=== PATIENT | male | born 1945 | race Caucasian/White ===

== ENCOUNTER 2016-06-19 15:54 | Emergency (ER) | payer MEDICARE, OTHER ==
[~2016-06-19] VITALS: Ht 167.6 cm; Wt 78.0 kg
--- NOTE | 2016-06-19 16:38 | PHYS DOC ---
Adult General Chief Complaint Chief Complaint: LOWER BACK PAIN OR INJURY HPI HPI Patient is a 71 year old male with history of remote sciatica who presents today with right flank and low back pain moderate in nature that began a week ago and has been going on intermittently since then. Patient states he has some numbness on the right heel. Patient denies any known injury. Denies any loss of bowel bladder function. Patient states he has tried taking ibuprofen and naproxen with no relief. He states today he was supposed to go to see the PCP and was not able to ambulate from the car into the doctor's office hence came to the ED. He states he saw a chiropractor today who felt he should be checked out for kidney infection as well as the pain. Review of Systems Review of Systems Constitutional: Denies fever or chills [] Eyes: Denies change in visual acuity, redness, or eye pain [] HENT: Denies nasal congestion or sore throat [] Respiratory: Denies cough or shortness of breath [] Cardiovascular: No additional information not addressed in HPI [] GI: Denies abdominal pain, nausea, vomiting, bloody stools or diarrhea [] : Denies dysuria or hematuria [] Musculoskeletal: Right mid and low back pain Integument: Denies rash or skin lesions [] Neurologic: Denies headache, focal weakness or sensory changes [] Endocrine: Denies polyuria or polydipsia [] Current Medications Current Medications Current Medications Medications (Trade) Dose Ordered Sig/Gill Start Time Stop Time Status Last Admin Dose Admin Acetaminophen/ Hydrocodone Bitart (Lortab 7.5/325) 2 tab 1X ONCE 06/19/16 17:30 06/19/16 17:31 Cancel Diazepam (Valium) 5 mg 1X ONCE 06/19/16 17:30 06/19/16 17:31 Cancel Morphine Sulfate 5 mg 1X ONCE 06/19/16 17:15 06/19/16 17:16 DC 06/19/16 17:13 5 MG Naproxen (Naprosyn) 500 mg 1X STAT 06/19/16 17:25 06/19/16 17:26 Cancel Allergies Allergies Allergies Coded Allergies Type Severity Reaction Last Updated Verified No Known Drug Allergies 06/19/16 No Physical Exam Physical Exam Constitutional: Well developed, well nourished, no acute distress, non-toxic appearance. [] HENT: Normocephalic, atraumatic, bilateral external ears normal, oropharynx moist, no oral exudates, nose normal. [] Eyes: PERRLA, EOMI, conjunctiva normal, no discharge. [] Neck: Normal range of motion, no tenderness, supple, no stridor. [] Cardiovascular:Heart rate regular rhythm, no murmur [] Lungs & Thorax: Bilateral breath sounds clear to auscultation [] Abdomen: Bowel sounds normal, soft, no tenderness, no masses, no pulsatile masses. [] Skin: Warm, dry, no erythema, no rash. [] Back: Diffuse tenderness paraspinal muscles of the right thoracic and lumbar region, no midline tenderness, straight leg raises not attempted because patient was uncomfortable to transfer from wheelchair to bed Extremities: No tenderness, no cyanosis, no clubbing, ROM intact, no edema. [] Neurologic: Alert and oriented X 3, normal motor function, normal sensory function, no focal deficits noted. [] Psychologic: Affect normal, judgement normal, mood normal. [] Current Patient Data Vital Signs Vital Signs Date Time Temp Pulse Resp B/P Pulse Ox O2 Delivery O2 Flow Rate FiO2 06/19/16 17:13 14 97 Room Air 06/19/16 16:50 98.0 70 98.0 Lab Values Laboratory Tests Test 06/19/16 16:41 Urine Collection Type Unknown Urine Color Yellow Urine Clarity Clear Urine pH 6.0 Urine Specific [place] <=1.005 Urine Protein Negativemg/dL (NEG-TRACE) Urine Glucose (UA) Negativemg/dL (NEG) Urine Ketones (Stick) Negativemg/dL (NEG) Urine Blood Negative (NEG) Urine Nitrite Negative (NEG) Urine Bilirubin Negative (NEG) Urine Urobilinogen Dipstick 0.2mg/dL (0.2 mg/dL) Urine Leukocyte Esterase Negative (NEG) Urine RBC Rare/HPF (0-2) Urine WBC 1-4/HPF (0-4) Urine Squamous Epithelial Cells Occ/LPF Urine Bacteria 0/HPF (0-FEW) Urine Mucus Slight/LPF EKG EKG [] Radiology/Procedures Radiology/Procedures []PROCEDURE: LUMBAR SPINE WO CONTRAST EXAM: CT lumbar spine without contrast. HISTORY: Low back pain. TECHNIQUE: CT of the lumbar spine was performed without intravenous contrast. COMPARISON: None. FINDINGS: A cyst in the left kidney is partially visualized and measures 1.6 cm. There is a smaller cyst on the right. Atherosclerotic calcifications are noted. There is a retroaortic left renal vein. There is a mild lumbar levocurvature. There is mild superior endplate wedging at T12 which may be chronic or developmental. There is slight retrolisthesis at L4-5. Degenerative disc disease is mild at L1-2. There is mild endplate remodeling at other levels. At L1-2, there is a small posterior disc bulge. There is no stenosis. At L2-3, there is a moderate posterior disc-osteophyte complex. Facet and ligamentum flavum hypertrophy is moderate. Central canal stenosis is moderate. Foraminal stenosis is mild to moderate on the right and mild on the left. At L3-4, there is a moderate posterior disc bulge. Facet and ligamentum flavum hypertrophy is moderate. Central canal stenosis appears moderate to severe. There is only mild impingement on the neural foramina. At L4-5, there is a moderate. B. Facet and ligamentum flavum hypertrophy is moderate. Central canal stenosis is moderate to severe. Foraminal stenosis is mild bilaterally. At L5-S1, there is a moderate posterior disc bulge. Facet and ligamentum flavum hypertrophy is moderate. Central canal stenosis appears mild. Foraminal stenosis is mild bilaterally. IMPRESSION: 1. No fracture or acute malalignment. 2. Central canal stenosis is moderate to severe from L2 through L5 and mild at L5-S1. MRI could further assess stenosis if there is persistent concern. 3. Igaw-um-zbcvbpke foraminal stenosis as above. PROCEDURE: THORACIC SPINE WO CONTRAST EXAM: CT thoracic spine without contrast. HISTORY: Thoracic back pain. TECHNIQUE: CT of the thoracic spine was performed without intravenous contrast. COMPARISON: None. FINDINGS: There are calcified and uncalcified pleural plaques bilaterally. There is mild overlying atelectasis or parenchymal scarring. Mild atherosclerotic calcifications are noted. There is a minimal thoracic dextrocurvature. There is mild superior plate depression at T3 and T4. This does not appear acute. There is a small superior endplate Schmorl's node at T11. Minimal wedging of the superior endplate of T11 and T12 may be developmental or chronic. There is ossification of the anterior longitudinal ligament with syndesmosis from T5 through T11. There is also some ossification of the interspinous ligaments at these levels. Disc heights are maintained. There is no clear central canal stenosis or foraminal stenosis. IMPRESSION: 1. Mild superior endplate depression at T3, T4, T11 and T12 is evident developmental or chronic. No acute fractures are seen. Correlate for focal tenderness. 2. Ankylosis from T5 through T11 in a pattern suggesting diffuse hepatic skeletal hyperostosis. 3. Calcified and noncalcified pleural plaquing. Correlate for asbestos exposure. Course & Med Decision Making Course & Med Decision Making Pertinent Labs and Imaging studies reviewed. (See chart for details) Patient is in the ED with thoracic and lumbar spine pain that has been going on intermittently for one week. He has history of very remote sciatica. He has tried naproxen and ibuprofen with no relief. He saw the chiropractor today with no relief. He is also concerned he could have a kidney infection. Urine analysis is negative for any acute findings. CT of the thoracic spine has no acute finding, these are noted for depression on T3 and T4 which appears to be acute. CT of the lumbar spine was also noted for asbestosis exposure. 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 He has no symptoms related to it right now. Lumbar spine CT is also negative for any acute findings but noted for stenosis on L2-L5 and L5-S1. Patient was discharged with pain medicines and instructed to follow-up with his own PCP as soon as possible. He was provided return precautions and discharged in stable condition. Dragon Disclaimer Dragon Disclaimer This electronic medical record was generated, in whole or in part, using a voice recognition dictation system. Departure Departure Impression: Primary Impression: Lumbar spinal stenosis Additional Impressions: Back pain Right sciatic nerve pain Disposition: HOME, SELF-CARE Condition: STABLE Referrals: TL GILES MD (PCP) Follow-up with your doctor in the next 1 week. Patient Instructions: Back Pain, Adult Additional Instructions: You were seen for back pain with sciatica. Follow-up with your own doctor as soon as possible. Come back to the ED if pain worsens or you have any loss of bowel bladder function. Scripts Cyclobenzaprine Hcl 10 Mg Tablet1 Tab PO TID #30 TAB Prov:JOEY PFEIFFER JUAN CARLOS 06/19/16 Hydrocodone/Apap 5-325 ([place] 5-325 Tablet)1 Each Tablet1-2 Tab PO Q4-6HRS #20 TAB Prov:JOEY PFEIFFER APRN 06/19/16 Problem Qualifiers Additional Impressions: Back pain Back pain location: low back pain Chronicity: chronic Back pain laterality : right Sciatica presence: with sciatica Sciatica laterality: sciatica of right side Qualified Code: M54.41 - Lumbago with sciatica, right side JOEY PFEIFFER APRN Jun 19, 2016 16:38
[2016-06-19 16:50] VITALS: BP 156/80
[2016-06-19 16:56] LABS: BILIRUBIN,URINE NEGATIVE (NEG); GLUCOSE,URINE NEGATIVE (NEG); NITRITE,URINE NEGATIVE (NEG); PROTEIN,URINE NEGATIVE (NEG-TRACE); UROBILINOGEN,URINE 0.2 mg/dL (0.2 mg/dL)
[2016-06-19] MEDS ORDERED: MORPHINE SULFATE 10 MG/ML VIAL. IM ONE (17:15)
[2016-06-19] MEDS ORDERED: DIAZEPAM 5 MG TABLET PO ONE ×2 (17:15→17:30)
--- NOTE | 2016-06-19 17:19 | RAD ---
EXAM: CT lumbar spine without contrast. HISTORY: Low back pain. TECHNIQUE: CT of the lumbar spine was performed without intravenous contrast. COMPARISON: None. FINDINGS: A cyst in the left kidney is partially visualized and measures 1.6 cm. There is a smaller cyst on the right. Atherosclerotic calcifications are noted. There is a retroaortic left renal vein. There is a mild lumbar levocurvature. There is mild superior endplate wedging at T12 which may be chronic or developmental. There is slight retrolisthesis at L4-5. Degenerative disc disease is mild at L1-2. There is mild endplate remodeling at other levels. At L1-2, there is a small posterior disc bulge. There is no stenosis. At L2-3, there is a moderate posterior disc-osteophyte complex. Facet and ligamentum flavum hypertrophy is moderate. Central canal stenosis is moderate. Foraminal stenosis is mild to moderate on the right and mild on the left. At L3-4, there is a moderate posterior disc bulge. Facet and ligamentum flavum hypertrophy is moderate. Central canal stenosis appears moderate to severe. There is only mild impingement on the neural foramina. At L4-5, there is a moderate. B. Facet and ligamentum flavum hypertrophy is moderate. Central canal stenosis is moderate to severe. Foraminal stenosis is mild bilaterally. At L5-S1, there is a moderate posterior disc bulge. Facet and ligamentum flavum hypertrophy is moderate. Central canal stenosis appears mild. Foraminal stenosis is mild bilaterally. IMPRESSION: 1. No fracture or acute malalignment. 2. Central canal stenosis is moderate to severe from L2 through L5 and mild at L5-S1. MRI could further assess stenosis if there is persistent concern. 3. Shyw-tm-lekudkkv foraminal stenosis as above. One or more of the following individualized dose reduction techniques were utilized for this examination: 1. Automated exposure control. 2. Adjustment of the mA and/or kV according to patient size. 3. Use of iterative reconstruction technique.
[2016-06-19 17:21] LABS: BACTERIA,URINE 0 /HPF (0-FEW); RBC,URINE RARE /HPF (0-2); SQUAMOUS EPITHELIAL CELL,UR OCC /LPF
--- NOTE | 2016-06-19 17:24 | RAD ---
EXAM: CT thoracic spine without contrast. HISTORY: Thoracic back pain. TECHNIQUE: CT of the thoracic spine was performed without intravenous contrast. COMPARISON: None. FINDINGS: There are calcified and uncalcified pleural plaques bilaterally. There is mild overlying atelectasis or parenchymal scarring. Mild atherosclerotic calcifications are noted. There is a minimal thoracic dextrocurvature. There is mild superior plate depression at T3 and T4. This does not appear acute. There is a small superior endplate Schmorl's node at T11. Minimal wedging of the superior endplate of T11 and T12 may be developmental or chronic. There is ossification of the anterior longitudinal ligament with syndesmosis from T5 through T11. There is also some ossification of the interspinous ligaments at these levels. Disc heights are maintained. There is no clear central canal stenosis or foraminal stenosis. IMPRESSION: 1. Mild superior endplate depression at T3, T4, T11 and T12 is evident developmental or chronic. No acute fractures are seen. Correlate for focal tenderness. 2. Ankylosis from T5 through T11 in a pattern suggesting diffuse hepatic skeletal hyperostosis. 3. Calcified and noncalcified pleural plaquing. Correlate for asbestos exposure. One or more of the following individualized dose reduction techniques were utilized for this examination: 1. Automated exposure control. 2. Adjustment of the mA and/or kV according to patient size. 3. Use of iterative reconstruction technique.
[2016-06-19] MEDS ORDERED: NAPROXEN 500 MG TABLET PO STA (17:25)
[2016-06-19] MEDS ORDERED: HYDROCODONE/APAP 7.5/325MG TABLET. PO ONE (17:30)
[2016-06-19] MEDS ORDERED: CYCL10TA2 PO (18:05)
[2016-06-19] MEDS ORDERED: HYDR-971 PO (18:05)
== END 2016-06-19 18:09 | disposition home or self-care (01) ==
LOC: ER 15:54
DX: M48.06 Spinal stenosis, lumbar region (principal); M54.41 Lumbago with sciatica, right side; M54.6 Pain in thoracic spine
CPT/HCPCS: 72128; 72131; 81001; 96372; 99285; J2270

== ENCOUNTER → 2016-07-14 | Outpatient (CLI) | payer OTHER ==
[2016-06-19 16:50] VITALS: BP 156/80
[~2016-07-14] MED LIST: CYCL10TA2 PO; HYDR-971 PO
--- NOTE | 2016-07-14 12:15 | KCIC ---
PROCEDURE Renal ultrasound. HISTORY Renal cyst COMPARISON There is no previous similar exam available FINDINGS Multiple sonographic images of the kidneys and urinary bladder are submitted. Right kidney measured 11.3 x 5.8 x 4.6 centimeters. Left kidney measured 11.3 x 5.9 x 5.9 centimeters. There is exophytic focus of hypoechogenicity of the medial aspect of the superior left kidney on the order of 1.9 x 2.2 x 2.2 centimeters in size with increased through transmission. There is no hydronephrosis of either kidney. Renal cortical echogenicity is considered within normal limits. Urinary bladder morphology is within normal limits. There is mild prostatomegaly estimated at 5.4 x 4.3 x 4.2 centimeters, some internal calcifications present. IMPRESSION 1. There is superior left renal cyst. 2. There is mild prostatomegaly. Electronically signed by: Jus Sheridan MD (Jul 14, 2016 12:13:20)
== END | disposition home or self-care (01) ==
LOC: KCIC US 11:02
PROVIDERS: ATTEND Family Medicine
DX: N28.1 Cyst of kidney, acquired (principal); N40.1 Benign prostatic hyperplasia with lower urinary tract symptoms
CPT/HCPCS: 76770

== ENCOUNTER → 2016-08-07 | Outpatient (CLI) | payer OTHER ==
--- NOTE | 2016-08-07 10:59 | RAD ---
CT chest without IV contrast History: Pleural plaquing. Comparison: CT thoracic spine 06/19/2016. Technique: Helical CT of the chest was performed without intravenous contrast. Axial, sagittal, and coronal reconstructions were obtained. One or more of the following individualized dose reduction techniques were utilized for the study: Automated exposure control Adjustment of mA and/or kV according to patient's size Use of iterative reconstruction technique. Findings: Visualized thyroid appears enlarged and heterogeneous. Trachea and mainstem bronchi appear patent. No mediastinal lymphadenopathy is seen. Aortic valve appears heavily calcified. Coronary artery calcifications are present. Heart and pericardium are unremarkable. The mid ascending thoracic aorta appears ectatic measuring 4.0 cm diameter. Descending thoracic aorta has diameter of 2.5 cm. No pneumothorax or pleural effusion is seen. No acute airspace disease are identified. No pulmonary parenchymal masses are appreciated. There are bilateral calcified and noncalcified pleural plaques involving the parietal pleura. There is also evidence several small noncalcified plaques involving the diaphragmatic pleura, more evident involving the right diaphragmatic pleura. 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 Appearance of the spine is unchanged with multiple bridging disc osteophytes suggesting DISH. Impression: 1. Bilateral calcified and noncalcified pleural plaques are seen including noncalcified pleural plaques thought to involve the right diaphragmatic pleura. 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 2. Aortic valve appears heavily calcified. Correlate with any history of aortic stenosis.
== END | disposition home or self-care (01) ==
LOC: CT 09:17
PROVIDERS: ATTEND Internal Medicine Pulmonary Disease
DX: J92.9 Pleural plaque without asbestos (principal)
CPT/HCPCS: 71250

== ENCOUNTER → 2016-08-19 | Outpatient (CLI) | payer OTHER ==
--- NOTE | 2016-08-19 17:26 | RESP ---
DATE OF SERVICE: 08/19/2016 ATTENDING PHYSICIAN: Dr. Clair Cerda. The patient's FVC was 2.43, which is 65% predicted. FEV1 1.81, which is 67% predicted. The FEV1/FVC ratio was normal. FEF 25-75 was 68% predicted. There was no response to bronchodilators. Lung volumes could not be performed. Diffusion capacity was 120% predicted. IMPRESSION: 1. Spirometry findings are suggestive of small airway dysfunction. 2. Lung volumes were not performed and cannot exclude restrictive lung disease. 3. No response to bronchodilators. 4. Increased diffusion capacity. RICHMOND BORREGO MD DR: ADALBERTO/tiana JOB#: [id number] / [id number] CLAIR Carey MD MTDD
== END | disposition home or self-care (01) ==
LOC: PF 09:27
PROVIDERS: ATTEND Internal Medicine Pulmonary Disease
DX: R06.02 Shortness of breath (principal)
CPT/HCPCS: 94060; 94729

== ENCOUNTER → 2018-05-20 | Outpatient (CLI) | payer OTHER ==
[~2018-05-20] MED LIST changes: +HYDR-3164 PO; -HYDR-971 PO
--- NOTE | 2018-05-20 12:17 | CARD ---
MR#: [id number] Date of Study: 05/20/2018 Ordering Physician: TL GILES, Referring Physician: TL GILES, Tech: Rachele Fletcher APPROVED REPORT EXAM: Two-dimensional and M-mode echocardiogram with Doppler and color Doppler. Other Information Quality : FairHR: 74bpm INDICATION Murmur RISK FACTORS Hypertension Diabetes Previous Smoker 2D DIMENSIONS Left Atrium(2D)3.3 (1.6-4.0cm)IVSd1.8 (0.7-1.1cm) Aortic Root(2D)3.2 (2.0-3.7cm)LVDd6.0 (3.9-5.9cm) LVOT Diameter2.2 (1.8-2.4cm)PWd1.4 (0.7-1.1cm) LVDs2.9 (2.5-4.0cm)FS (%) 52.4 % SV149.3 mlLVEF(%)82.8 (>50%) Aortic Valve AoV Peak Ari.361.5cm/sAoV VTI79.7cm AO Peak GR.52.3mmHgLVOT Peak Ari.70.7cm/s LVOT VTI 22.96cmAO Mean GR.28mmHg HAWK (VMAX)0.87zi2BCY (VTI)1.07cm2 AI P 1/2 Yzgz994bf Mitral Valve MV E Hblvekxj37.5cm/sMV DECEL MGZW251uo MV A Mmuxlkje513.2cm/sMV LOE67at E/A Ratio0.9MVA (PHT)3.23cm2 TDI E/Lateral E'18.5E/Medial E'17.2 Pulmonary Valve PV Peak Secskiky410.5cm/sPV Peak Grad.5mmHg Tricuspid Valve TR P. Mscakobp991pp/sRAP DYHBKSDH5vwAc TR Peak Gr.50soJpQAXX34fcTx Pulmonary Vein S1 Jplhcami59.0cm/sD2 Jikyipdy14.0cm/s PVa zynrascw734hbrn LEFT VENTRICLE The left ventricle is normal size. There is moderate concentric left ventricular hypertrophy. The lef t ventricular systolic function is normal. The Ejection Fraction is 55-60%. There is normal LV segmen aura wall motion. Transmitral Doppler flow pattern is Grade II-pseudonormal filling dynamics. RIGHT VENTRICLE The right ventricle is normal size. There is normal right ventricular wall thickness. The right ventr icular systolic function is normal. ATRIA The left atrium size is normal. The right atrium size is normal. The interatrial septum is intact wit h no evidence for an atrial septal defect or patent foramen ovale as noted on 2-D or Doppler imaging. AORTIC VALVE The aortic valve is moderately to severely thickened. Doppler and Color Flow revealed mild aortic reg urgitation. There is moderate valvular aortic stenosis with mean pressure gradient of 28 mmHg. MITRAL VALVE The mitral valve is normal in structure and function. There is no evidence of mitral valve prolapse. There is no mitral valve stenosis. Doppler and Color-flow revealed trace to mild mitral regurgitation . TRICUSPID VALVE The tricuspid valve is normal in structure and function. Doppler and Color Flow revealed trace tricus pid regurgitation. There is no tricuspid valve stenosis. PULMONIC VALVE The pulmonic valve is not well visualized. Doppler and Color Flow revealed no pulmonic valvular regur gitation. GREAT VESSELS The aortic root is normal in size. The IVC is normal in size and collapses >50% with inspiration. PERICARDIAL EFFUSION There is no evidence of significant pericardial effusion. Critical Notification Critical Value: No <Conclusion> The left ventricular systolic function is normal. The Ejection Fraction is 55-60%. There is normal LV segmental wall motion. Moderate valvular aortic stenosis with mean pressure gradient of 28 mmHg. Mild aortic regurgitation. Trace to mild mitral regurgitation. Trace tricuspid regurgitation. There is no evidence of significant pericardial effusion. Signed by : Saeed Smiley, Electronically Approved : 05/20/2018 12:14:38
== END | disposition home or self-care (01) ==
LOC: ECHO 09:02
PROVIDERS: ATTEND Family Medicine
DX: I35.1 Nonrheumatic aortic (valve) insufficiency (principal); I51.7 Cardiomegaly
CPT/HCPCS: 93306

== ENCOUNTER 2018-09-26 10:47 | Emergency (ER) | payer OTHER ==
[~2018-09-26] VITALS: Ht 167.6 cm; Wt 77.1 kg
[2018-09-26 11:24] VITALS: BP 139/70
[2018-09-26] MEDS ORDERED: HYDR-3164 PO (11:56)
[2018-09-26] MEDS ORDERED: METH4TAB2 PO (11:56)
--- NOTE | 2018-09-26 11:57 | PHYS DOC ---
Past Medical History Past Medical History: Hypertension Additional Past Medical Histor: BPH Past Surgical History: No Surgical History Additional Past Surgical Histo: skin graft Alcohol Use: Occasionally Drug Use: None Adult General Chief Complaint Chief Complaint: LOWER BACK PAIN OR INJURY HPI HPI 73-year-old male presents to ER for complaints of left lower back pain which is been radiating down his left lower extremity intermittently for the past few weeks. Pt reports he has been doing yard work using a weedeater and riding mower. Patient reports he took 800 mg ibuprofen a few hours ago with improved symptoms. Review of Systems Review of Systems Constitutional: Denies fever or chills [] Eyes: Denies change in visual acuity, redness, or eye pain [] HENT: Denies nasal congestion or sore throat [] Respiratory: Denies cough or shortness of breath [] Cardiovascular: No additional information not addressed in HPI [] GI: Denies abdominal pain, nausea, vomiting, bloody stools or diarrhea [] : Denies dysuria or hematuria [] Musculoskeletal: Denies back pain or joint pain [] Integument: Denies rash or skin lesions [] Neurologic: Denies headache, focal weakness or sensory changes [] Endocrine: Denies polyuria or polydipsia [] All other systems were reviewed and found to be within normal limits, except as documented in this note. Current Medications Current Medications Current Medications Medications (Trade) Dose Ordered Sig/Gill Start Time Stop Time Status Last Admin Dose Admin Prednisone (Prednisone) 40 mg 1X ONCE 09/26/18 12:00 09/26/18 12:01 DC 09/26/18 11:54 40 MG Allergies Allergies Allergies Coded Allergies Type Severity Reaction Last Updated Verified No Known Drug Allergies 06/19/16 No Physical Exam Physical Exam Constitutional: Well developed, well nourished, no acute distress, non-toxic appearance. [] HENT: Normocephalic, atraumatic, bilateral external ears normal, oropharynx moist, no oral exudates, nose normal. [] Eyes: PERRLA, EOMI, conjunctiva normal, no discharge. [] Neck: Normal range of motion, no tenderness, supple, no stridor. [] Cardiovascular:Heart rate regular rhythm, no murmur [] Lungs & Thorax: Bilateral breath sounds clear to auscultation [] Abdomen: Bowel sounds normal, soft, no tenderness, no masses, no pulsatile masses. [] Skin: Warm, dry, no erythema, no rash. [] Back: No tenderness, no CVA tenderness. [] Extremities: No tenderness, no cyanosis, no clubbing, ROM intact, no edema. [] Neurologic: Alert and oriented X 3, normal motor function, normal sensory function, no focal deficits noted. [] Psychologic: Affect normal, judgement normal, mood normal. [] Current Patient Data Vital Signs Vital Signs Date Time Temp Pulse Resp B/P (MAP) Pulse Ox O2 Delivery O2 Flow Rate FiO2 09/26/18 11:24 98.7 85 18 139/70 (93) 97 Room Air 98.7 EKG EKG [] Radiology/Procedures Radiology/Procedures [] Course & Med Decision Making Course & Med Decision Making Pertinent Labs and Imaging studies reviewed. (See chart for details) [] Dragon Disclaimer Dragon Disclaimer This electronic medical record was generated, in whole or in part, using a voice recognition dictation system. Departure Departure Impression: Primary Impression: Back pain Additional Impression: Sciatica, left side Disposition: 01 HOME, SELF-CARE Condition: STABLE Referrals: TL GILES MD (PCP) Patient Instructions: Back Pain, Adult, Sciatica Additional Instructions: As discussed follow-up with your primary care physician for reevaluation and further care if symptoms persist. Epsom salt soaks as directed on container. Tylenol and/or ibuprofen as needed for pain as directed on container- avoid Tylenol if taking the prescribed [place]. No driving or drinking alcohol while taking the [place]. Scripts Hydrocodone/Apap 5-325 ([place] 5-325 TABLET) 1 Each Tablet 1 TAB PO PRN Q6HRS PRN for PAIN, #8 TAB 0 Refills No driving or drinking alcohol while taking this medication Prov: TERRI SMITH APRN 09/26/18 Methylprednisolone (MEDROL) 4 Mg Tab.ds.pk 1 PKG PO UD, #1 PKG 0 Refills Start 09/27/18 Prov: TERRI SMITH APRN 09/26/18 Problem Qualifiers TERRI SMITH APRN Sep 26, 2018 11:57
[2018-09-26] MEDS ORDERED: predniSONE 20 MG TABLET PO ONE (12:00)
== END 2018-09-26 12:45 | disposition home or self-care (01) ==
LOC: ER 10:47
DX: M54.42 Lumbago with sciatica, left side (principal); I10 Essential (primary) hypertension
CPT/HCPCS: 99283; J7512

== ENCOUNTER → 2018-10-05 | Outpatient (CLI) | payer OTHER ==
[2018-09-26 11:24] VITALS: BP 139/70
[~2018-10-05] MED LIST changes: +METH4TAB2 PO
--- NOTE | 2018-10-05 17:50 | KCIC ---
5 view lumbar spine radiographs 10/05/2018 CLINICAL HISTORY: Low back pain which radiates down the left leg. AP, 2 lateral and bilateral oblique digital radiographs of the lumbar spine were obtained. FINDINGS: Comparison is made to a CT scan of the lumbar spine dated 06/16/2016. There is diffuse osteopenia of the visualized bony structures. Minimal S-shaped curvature of the thoracolumbar spine is seen. Degenerative changes are seen throughout the lumbar disc spaces consisting of vertebral endplate sclerosis and minimal to mild anterior and posterior vertebral body osteophyte formation. Degenerative changes are seen involving the facet joints throughout the mid and lower lumbar disc spaces. No fracture or subluxation is seen. Atherosclerotic calcification of the abdominal aorta is noted. IMPRESSION: Degenerative changes are seen involving the lumbar spine as discussed above. No acute osseous abnormality is seen. Electronically signed by: Jovan Braden MD (10/05/2018 5:47 PM) [id number]
== END | disposition home or self-care (01) ==
LOC: KCIC 15:35
PROVIDERS: ATTEND Family Medicine
DX: M47.816 Spondylosis without myelopathy or radiculopathy, lumbar region (principal); M85.88 Other specified disorders of bone density and structure, other site; M25.78 Osteophyte, vertebrae; I70.0 Atherosclerosis of aorta
CPT/HCPCS: 72110

== ENCOUNTER → 2018-10-31 | Outpatient (CLI) | payer OTHER ==
--- NOTE | 2018-10-31 11:15 | KCIC ---
Clinical indications: Screening for metal within the orbits prior to an MRI study. A single Conde view of the orbits was performed. Findings: No metallic foreign body is seen within either orbit. The maxillary and ethmoid and frontal sinuses are clear. The orbital floors appear symmetric and are intact. Impression: No metallic foreign body is identified within either orbit. Electronically signed by: Baldev Alexandre MD (10/31/2018 11:12 AM) [id number]
--- NOTE | 2018-10-31 14:45 | KCIC ---
LUMBAR SPINE WO CONTRAST Date: 10/31/2018 11:00 AM Indication: Low back pain with left lower extremity radiculopathy Comparison: Lumbar spine radiographs 10/05/2018. CT lumbar spine 06/19/2016. Technique: Multi-planar multi-weighted magnetic resonance imaging of the lumbar spine was performed without intravenous contrast using the standard lumbar spine protocol. FINDINGS: The lumbar spine is normally aligned. No acute fracture. Mild multilevel degenerative disc desiccation and disc height loss. No marrow replacing process to suggest malignancy. The conus terminates at a normal level. No abnormal signal is seen within the visualized distal spinal cord. No clumping of intrathecal nerve roots. No soft tissue abnormality in the visualized abdomen or pelvis. T12-L1: No disc bulge. No facet arthropathy. No significant spinal stenosis or neural foraminal narrowing. L1-L2: No disc bulge. No facet arthropathy. No significant spinal stenosis or neural foraminal narrowing. L2-L3: Disc bulge with annular tear. Mild to moderate facet arthropathy. Mild spinal stenosis. Moderate bilateral neural foraminal narrowing. L3-L4: Disc bulge. Moderate facet arthropathy. Mild to moderate spinal stenosis and lateral recess. Mild to moderate bilateral neural foraminal narrowing. L4-L5: Disc bulge. Moderate facet arthropathy. Ligamentum flavum thickening. Mild to moderate spinal stenosis. Mild to moderate bilateral neural foraminal narrowing. Moderate lateral recess narrowing. L5-S1: Disc bulge. Mild facet arthropathy. No significant spinal stenosis. Mild neural foraminal narrowing. IMPRESSION: Lumbar spondylosis, detailed level by level above. No high-grade spinal canal narrowing. Electronically signed by: Gianfranco Samayoa MD (10/31/2018 2:42 PM) [id number]
== END | disposition home or self-care (01) ==
LOC: KCIC MRI 10:44
PROVIDERS: ATTEND Family Medicine
DX: Z13.5 Encounter for screening for eye and ear disorders (principal); M47.26 Other spondylosis with radiculopathy, lumbar region; M12.88 Other specific arthropathies, not elsewhere classified, other specified site; M48.061 Spinal stenosis, lumbar region without neurogenic claudication
CPT/HCPCS: 70030; 72148

== ENCOUNTER → 2018-12-09 | Outpatient (CLI) | payer OTHER ==
[~2018-12-09] MED LIST changes: +AMLO5TAB10 PO; +DICL75TA PO; +GABA600T7 PO; +LISI-130 PO; +PRED20TA PO; +TAMS0.4C97 PO
--- NOTE | 2018-12-10 00:45 | PAIN ---
DATE OF SERVICE: 12/09/2018 INITIAL CONSULTATION FOR PAIN CLINIC CHIEF COMPLAINT: Neck and bilateral upper extremity pain, right greater than left. HISTORY OF PRESENT ILLNESS: This is a 73-year-old male who presents with history of pain in the base of the neck and shoulders, right upper extremity radiating to the right bicep into the hand with numbness and tingling in the fingers since about 09/26/2018. The patient reports there is not any specific injury or action he is aware of, but getting worse over time with radiating pain in the base of neck and shoulders, again somewhat in the left bicep mostly on the right side. The patient reports it is constant, sharp, throbbing, tingling with numbness, radiating pain in the right arm, changes during the day with activity, worse with reaching over his head, rubbing items of shells, repetitive motions with the right arm with weightbearing or lifting items. The patient reports no loss of motor function, but significant fatigability with the right arm compared to the left. The patient reports it awakens him from sleep at night, but not every night, does not affect his bowel or bladder control, but sometimes does affect his ability to walk and he feels off balance. He is holding things with his right arm such as a rail on a stair. He feels unsteady with his right hand. The patient reports he has tried exercise. He has had some physical therapy in the past without significant improvement. He is doing inversion table at home as well, which seems to help to some extent. The patient is taking prednisone, gabapentin, diclofenac. Prednisone helped significantly, almost 100%, 20 mg took at 2:00 a.m. this morning and has no pain for about 8 hours afterwards. The patient rates his disability rating from 0-10, 10 being the worst, is a 10 with family and home responsibilities, recreation, social activity, occupation and sexual behavior, 8 with self-care and 7 with life-support activities. The patient reports when he is taking prednisone, he has almost no difficulty with any of these activities; however, while the relief lasts. The patient did have an MRI scan of cervical spine demonstrating C5-C6 facet hypertrophy, greater on the right and uncovertebral hypertrophy and small posterior disk bulge, just mildly effacing the ventral thecal sac, C6-C7 shows disk osteophyte complex effacing the ventral thecal sac, ligamentum flavum thickening resulting in mild spinal stenosis and moderate bilateral neural foraminal stenosis. C4-C5 shows mild facet hypertrophy resulting in severe bilateral neural foraminal stenosis, greater on the left with significant spinal stenosis at that level. PAST MEDICAL HISTORY: Significant for type 2 diabetes, hypertension, dizziness, arthritis. PREVIOUS SURGERIES: Include skin graft from miller on the left arm. CURRENT MEDICATIONS: Include hydrocodone, amlodipine, prednisone, gabapentin, lisinopril, and Flomax. ALLERGIES: THE PATIENT IS ALLERGIC TO PENICILLIN. FAMILY HISTORY: Significant for lung cancers, high blood pressure. SOCIAL HISTORY: The patient drinks 2-3 beers occasionally, but only once a month at the most. Does not smoke. Does not use any illegal, illicit or recreational drugs. He is , lives with his spouse, lives locally in [place], [place]. Reports he is currently retired. REVIEW OF SYSTEMS: The patient's review of systems is positive for those items mentioned in history of present illness. All systems reviewed and otherwise negative. It is complete, full and well documented on the patient's chart. PHYSICAL EXAMINATION: VITAL SIGNS: The patient's blood pressure 109/70, pulse is 73, respirations 18, temperature is 98.6 degrees Fahrenheit, height is 5 feet 6 inches and weight is 167 pounds. GENERAL: The patient is awake, alert, oriented, appropriate, very pleasant demeanor. HEENT: Head shows normocephalic, atraumatic. Extraocular movements are intact and symmetrical. Oral cavity: Mucous membranes moist and pink. Dentition is intact. NECK: Shows anterior throat supple without palpable lymphadenopathy noted. Swallow reflex symmetrical. CHEST: Shows normal on inspection. Breath sounds clear to auscultation bilaterally. HEART: Shows S1 and S2 clear. No murmurs auscultated. ABDOMEN: Soft, nontender, nondistended. No palpable organomegaly is noted. No rebound or guarding demonstrated. BACK: Shows spine grossly in the midline, normal-appearing cervical lordotic curvature, thoracic kyphotic curvature and lumbar lordotic curvature. Cervical paraspinous muscle shows symmetrical on inspection, on palpation shows some moderate tenderness diffusely bilaterally, but only diffusely without specific radiation. The patient has good rotational motion of cervical spine, both laterally greater than 45 degrees right and left as well as full extension, full forward flexion without significant pain reported. EXTREMITIES: The patient's upper extremities show deep tendon reflexes at 2+ in the biceps and triceps tendons. Motor exam is approximately 4 on a scale of 5, but equal and symmetrical with box packer strength, bicep and tricep flexion. Shoulder shrug is strong and intact without loss of strength on resistance as is abduction of the shoulders 90 degrees without loss of strength on resistance as well. The patient's right hand does appear edematous to some extent compared to the left and left hand shows some skin graft scarring as well. Peripheral pulses are 2+ radial distribution. No peripheral edema is noted. SKIN: Shows warm and dry, good turgor. No edema sores, rashes or bruising. IMPRESSION: 1. This is a 73-year-old male with approximate 2-month history of increasing pain, base of the neck and radicular pain in the right greater than left upper extremities. 2. MRI scan of cervical spine as noted. 3. Type 2 diabetes. 4. Hypertension. 5. Arthritis. PLAN: Options were discussed with the patient and the patient's spouse who accompanies him to his visit today. He is having radicular pain in the C6-C7 dermatomal distribution on the right arm specifically. He would like to pursue interventional techniques. He is doing some stretching and strengthening exercises on his own, has had therapy in the past without significant improvement and using an inversion table currently. We discussed a cervical epidural steroid injection using description as well as anatomical models to describe the procedure. We will wait for preauthorization with patient's insurance provider. The patient would like to return for a translaminar cervical epidural steroid injection at the C6-C7 level. In the meantime, we will try Dian 5 mg at bedtime. The patient was given instruction as well as side effects to be aware of. He was given samples of medication with instructions, side effects to be aware of as well. The patient will follow up as scheduled plan on cervical epidural steroid injection on his return. ORQUIDEA VALENTIN MD DR: CANDIS/tiana JOB#: [id number] / [id number]
== END | disposition home or self-care (01) ==
LOC: PNCL 09:50
PROVIDERS: ATTEND Anesthesiology
DX: M48.02 Spinal stenosis, cervical region (principal); M54.2 Cervicalgia; M79.601 Pain in right arm; E11.9 Type 2 diabetes mellitus without complications; I10 Essential (primary) hypertension; M13.88 Other specified arthritis, other site; Z88.0 Allergy status to penicillin; R20.0 Anesthesia of skin; R20.2 Paresthesia of skin; M25.78 Osteophyte, vertebrae
CPT/HCPCS: G0463

== ENCOUNTER → 2019-01-03 | Outpatient (CLI) | payer OTHER ==
[~2019-01-03] MED LIST changes: +ASPI81TA50 PO; +ATOR40TA PO; +IOHEXOL 180 MG/ML 10 ML VIAL. ONE; +METO-239 PO; +NITR0.4T22 SL; +methylPREDNISolone ACETATE 40 MG/ML VIAL. ONE; +methylPREDNISolone ACETATE 80 MG/ML VIAL. ONE
--- NOTE | 2019-01-03 09:39 | PAIN ---
DATE OF SERVICE: 01/03/2019 PROGRESS NOTE FOR PAIN CLINIC DIAGNOSES: Cervical radiculopathy with cervical degenerative disk disease and cervical spinal stenosis. HISTORY OF PRESENT ILLNESS: The patient is a 73-year-old male who returns for followup status post initial evaluation, last seen 12/09/2018. The patient was traveling out of town. 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 The patient reports otherwise he is doing fairly well, had no longer short of breath. No chest pain, but still significant pain in the base of neck and shoulder, right upper extremity, right arm with some swelling in the right hand and painful with decreased mobility and function secondary to pain in the right arm. The patient reports it is a 10 on a scale of 10 at its worst in the past week, 7 on average, 2 at its least and is a 7 today. The patient reports he has stopped his diclofenac after his myocardial infarction and notices that the pain is much more noticeable in the shoulders and associated right arm. The patient describes it as aching, sharp, dull, tingling, stabbing, becoming more constant, sometimes unbearable with repetitive motions, reaching above his head with his right arm as well. PHYSICAL EXAMINATION: VITAL SIGNS: The patient's blood pressure 104/48, pulse 63, respirations 18, temperature 98.1 degrees Fahrenheit, height is 5 feet 6 inches, weight is 165 pounds. GENERAL: The patient is awake, alert, oriented, appropriate, very pleasant demeanor. HEENT: Shows normocephalic, atraumatic. Extraocular movements are intact and symmetrical. Oral cavity: Mucous membranes moist and pink. Dentition is intact. NECK: Shows anterior throat supple without palpable lymphadenopathy noted. Swallow reflex symmetrical. CHEST: Shows normal on inspection. Breath sounds clear to auscultation bilaterally. HEART: Shows S1, S2 clear. ABDOMEN: Soft, nontender, nondistended. BACK: Shows spine grossly in the midline. Cervical paraspinous muscle shows symmetrical on inspection with normal-appearing cervical lordotic curvature. On palpation shows some mild tenderness to moderate tenderness in the inferior aspect of the cervical paraspinous musculature, especially on the right side into the trapezius laterally as well. EXTREMITIES: The patient's upper extremities show deep tendon reflexes at 2+ in the biceps and triceps tendons. Motor exam is approximately 3-4 on a scale of 5 on the right with foreign diplomat strength. There is some noticeable swelling in the posterior aspect of the right hand compared to the left. Peripheral pulses are 2+ radial distribution however and equal. Options were discussed with the patient. The patient's old chart was reviewed as his current medication regimen updated. Current review of systems updated today as well. We will proceed with a cervical epidural steroid injection today with fluoroscopic guidance. Risks were again discussed including, but not limited to bleeding, infection, possibility of epidural hematoma, subsequent neurologic compromise, dural puncture, headaches, spinal cord and/or nerve damage, side effects of steroid medication and poor results regarding pain control. The patient understands and wished to proceed. The patient will return to clinic in approximately 2 weeks for followup. He was counseled as to return appointment, activity level and side effects to be aware of. DIAGNOSES: Cervical radiculopathy with cervical spinal stenosis and cervical degenerative disk disease. PROCEDURE: Cervical epidural steroid injection, translaminar approach C6-C7 level using C-arm fluoroscopic guidance under sterile prep and drape using local anesthetic. MEDICATION INJECTED: The patient received a total of 120 mg Depo-Medrol plus 5 mL of preservative-free normal saline and 2 mL of contrast. CONDITION AT DISCHARGE: Stable. The patient tolerated the procedure well, had no complications. ORQUIDEA VALENTIN MD DR: CANDIS/tiana JOB#: [id number] / [id number]
== END ==
LOC: PNCL 08:14
PROVIDERS: ATTEND Anesthesiology
DX: M50.123 Cervical disc disorder at C6-C7 level with radiculopathy (principal); M48.02 Spinal stenosis, cervical region
CPT/HCPCS: 62321; J1030; J1040; Q9965

== ENCOUNTER → 2019-01-17 | Outpatient (CLI) | payer OTHER ==
[~2019-01-17] MED LIST changes: -IOHEXOL 180 MG/ML 10 ML VIAL. ONE; +LISI-334 PO; +PREG75CA PO; -methylPREDNISolone ACETATE 40 MG/ML VIAL. ONE; -methylPREDNISolone ACETATE 80 MG/ML VIAL. ONE
--- NOTE | 2019-01-17 09:34 | PAIN ---
DATE OF SERVICE: 01/17/2019 PROGRESS NOTE FOR PAIN CLINIC DIAGNOSES: Cervical radiculopathy with cervical degenerative disk disease and cervical spinal stenosis. HISTORY OF PRESENT ILLNESS: The patient is a 73-year-old male who returns for followup status post cervical epidural steroid injection x 1. The patient reports about 80% improvement overall the first week, then 2 weeks now is about 50% improvement overall, but still some significant pain in the right upper extremity radiating from the base of neck and shoulder. The patient reports that the first week or two, he was doing much better, increased his activity at home, doing activities around the house, working on his truck with much greater ease and comfort, sleeping well at night, still does not awaken him from sleep and now the pain is returning in the right upper extremity radiating in radicular fashion in a C6-C7 dermatomal distribution on the right side. The patient reports his pain is at 10 on a scale of 10 at its worst over the past week, 8 on average, 3 at its least and is an 8 today. The patient reports it is aching, sharp, dull, tight, shooting, stabbing, tingling, constant, severe, unbearable with the use of the right upper extremity, still some weakness in the right hand but without motor loss. He has been dropping some items with his right hand. He is right handed. The patient reports no new motor or sensory deficits, no new changes. PHYSICAL EXAMINATION: VITAL SIGNS: The patient's blood pressure 87/50, pulse 72, respirations are 18, temperature 98.2 degrees Fahrenheit, height is 5 feet 6 inches and weight is 164 pounds. GENERAL: The patient is awake, alert, oriented, appropriate, very pleasant demeanor. HEENT: Exam shows normocephalic, atraumatic. Extraocular movements are intact and symmetrical. Oral cavity: Mucous membranes moist and pink. Dentition is intact. NECK: Shows anterior throat supple without palpable lymphadenopathy noted. Swallow reflex is symmetrical. CHEST: Shows normal on inspection. Breath sounds are clear bilaterally. HEART: Shows S1, S2 clear. BACK: Shows spine grossly in the midline. Cervical paraspinous muscle shows symmetrical on inspection. On palpation shows some moderate tenderness diffusely in the inferior aspect of the cervical paraspinous musculature, more on the right than the left into the superior medial trapezius as well on the right side. The patient shows no trigger points, no radiation of pain. The patient shows good rotational motion of cervical spine, both laterally as well as extension and flexion without significant increase in pain. EXTREMITIES: Upper extremities show deep tendon reflexes 2+ in the biceps, triceps tendons. Motor exam is approximately 3-4 on a scale of 5 with right chronic specialist and 5/5 on the left. The patient does have some swelling on the posterior aspect of the right hand as well, which is present on previous exam. Peripheral pulses are 2+ radial distribution. No peripheral edema is noted. Options were discussed with the patient. The patient's old chart was reviewed as his current medication regimen updated. Current review of systems updated today as well. We will proceed with preauthorization for a second cervical epidural steroid injection. He still has some significant radiculopathy in the C6-C7 dermatomal distribution on the right arm much better after the first injection, but the pain returning now. The patient will maintain stretching and strengthening exercises of the shoulder and right arm as well as the neck and will return for a second cervical epidural steroid injection once approved at the C6-C7 level of the translaminar approach. ORQUIDEA VALENTIN MD DR: CANDIS/tiana JOB#: [id number] / [id number]
== END | disposition home or self-care (01) ==
LOC: PNCL 07:55
PROVIDERS: ATTEND Anesthesiology
DX: M50.10 Cervical disc disorder with radiculopathy, unspecified cervical region (principal); M48.02 Spinal stenosis, cervical region
CPT/HCPCS: G0463

== ENCOUNTER → 2019-01-31 | Outpatient (CLI) | payer OTHER ==
[~2019-01-31] MED LIST changes: +IOHEXOL 180 MG/ML 10 ML VIAL. ONE; +methylPREDNISolone ACETATE 40 MG/ML VIAL. ONE; +methylPREDNISolone ACETATE 80 MG/ML VIAL. ONE
--- NOTE | 2019-01-31 11:20 | PAIN ---
DATE OF SERVICE: 01/31/2019 PROGRESS NOTE FOR PAIN CLINIC DIAGNOSES: Cervical radiculopathy with cervical degenerative disk disease and cervical spinal stenosis. HISTORY OF PRESENT ILLNESS: The patient is a 73-year-old male who returns for followup status post cervical epidural steroid injection x1 with very good results about 80% improvement initially and still pain returning in the base of the neck and the right upper extremity. Significantly, the patient has a difficult time using his hand on the right side secondary to pain and numbness and tingling, especially fine motor movements such as buttoning a shirt. The patient reports otherwise he is doing fairly well, still awaken from sleep about every 5 hours or so, he can usually reposition and get back to sleep. Initially, he was doing quite well, but the pain has returned. He is waiting for preauthorization with insurance provider, which is obtained now and would like to proceed with a second injection today. The patient reports the pain is a 10 on a scale of 10 at its worst in the past week, 8 on average, 3 at its least and is an 8 today. The patient reports it is aching, dull, stabbing, unbearable at times, difficult to even holding items with his right hand such as spoon or fork. He has had his have to feed him twice during the past week because of this and also having difficulty getting dressed because of the fine motor movements, inability with buttons and snaps and so forth. PHYSICAL EXAMINATION: VITAL SIGNS: The patient's blood pressure 141/77, pulse 66, respirations are 18, temperature 98.4 degrees Fahrenheit, height is 5 feet 6 inches, weight is 165 pounds. GENERAL: The patient is awake, alert, oriented, appropriate, very pleasant demeanor. HEENT: Shows normocephalic, atraumatic. Extraocular movements are intact and symmetrical. Oral cavity: Mucous membranes moist and pink. Dentition is intact. NECK: Shows anterior throat supple without palpable lymphadenopathy noted. Swallow reflex is symmetrical. CHEST: Shows normal on inspection. Breath sounds are clear bilaterally. HEART: Shows S1, S2 clear. ABDOMEN: Soft, nontender, nondistended. BACK: The patient's back shows spine grossly in the midline. Cervical paraspinous muscle shows symmetrical on inspection; with palpation shows some moderate tenderness diffusely bilaterally, but only diffusely without radiation. The patient's back shows full rotation and motion in cervical spine both laterally as well as extension and flexion without significant increase in pain. The patient's upper extremities show deep tendon reflexes 2+ in the biceps and triceps tendons. Motor exam is approximately 3-4 on a scale of 5 on the right, community case manager strength 5/5 on the left. Peripheral pulses are 2+ radial distribution. The patient's right hand does have edematous appearance compared to the left. Options were discussed with the patient. The patient's old chart was reviewed as his current medication regimen updated. Current review of systems updated today as well. We will proceed with a second in a series of cervical epidural steroid injection today with fluoroscopic guidance. Risks were again discussed including, but not limited to bleeding, infection, possibility of epidural hematoma, subsequent neurologic compromise, dural puncture, headaches, spinal cord and/or nerve damage, side effects of steroid medication and poor results regarding pain control. The patient understands and wished to proceed. The patient will return to clinic in approximately 2 weeks for followup. He was counseled on return appointment, activity level and side effects to be aware of. DIAGNOSES: Cervical radiculopathy with cervical degenerative disk disease and cervical spinal stenosis. PROCEDURE: Cervical epidural steroid injection, translaminar approach C6-C7 level using C-arm fluoroscopic guidance under sterile prep and drape using local anesthetic. MEDICATION INJECTED: The patient received a total of 120 mg Depo-Medrol plus 5 mL of preservative-free normal saline and 2 mL of contrast. CONDITION AT DISCHARGE: Stable. The patient tolerated the procedure well, had no complications. ORQUIDEA VALENTIN MD DR: CANDIS/tiana JOB#: [id number] / [id number]
== END ==
LOC: PNCL 07:54
PROVIDERS: ATTEND Anesthesiology
DX: M50.123 Cervical disc disorder at C6-C7 level with radiculopathy (principal); M48.02 Spinal stenosis, cervical region
CPT/HCPCS: 62321; J1030; J1040; Q9965

== ENCOUNTER → 2019-11-01 | Outpatient (CLI) | payer MEDICARE ==
[2019-05-09 15:00] VITALS: BP 165/73
[~2019-11-01] MED LIST changes: +CLOP75TA PO; +DAPA10TA PO; -IOHEXOL 180 MG/ML 10 ML VIAL. ONE; +METF500T16 PO; +PREG-9 PO; -PREG75CA PO; -methylPREDNISolone ACETATE 40 MG/ML VIAL. ONE; -methylPREDNISolone ACETATE 80 MG/ML VIAL. ONE
--- NOTE | 2019-11-01 16:42 | KCIC ---
EXAM: THYROID ULTRASOUND. HISTORY: Thyroid nodules. COMPARISON: None. FINDINGS: Sonographic evaluation of the thyroid gland was performed and evaluated using ACR TI-RADS criteria. Right lobe: The right lobe measures 4.2 x 2.0 x 2.4 cm. The parenchyma is diffusely heterogeneous and mostly replaced by nodules. Nodule #1. Maximum size: 1.9 cm; Other 2 dimensions 1.7 x 1.3 cm. Location: mid pole. ACR TI-RADS risk category: TR4 (4-6 points): FNA if 1.5 cm, follow-up if 1-1.4 cm in 1, 2, 3, and 5 years. Nodule #2. Maximum size: 1.5 cm; Other 2 dimensions 1.4 x 1.3 cm. Location: upper pole. ACR TI-RADS risk category: TR4 (4-6 points): FNA if 1.5 cm, follow-up if 1-1.4 cm in 1, 2, 3, and 5 years. A 9 mm solid hyperechoic nodule at the upper pole has similar characteristics. Left lobe: The left lobe measures 5.0 x 3.2 x 3.1 cm. The parenchyma is diffusely heterogeneous and mostly replaced by nodules. Nodule #1. Maximum size: 2.8 cm; Other 2 dimensions 2.7 x 1.4 cm. Location: mid pole. ACR TI-RADS risk category: TR3 (3 points): FNA if 2.5 cm, follow-up if 1.5-2.4 cm in 1, 3, and 5 years. Number of spongiform nodules of at least 2 cm not described (TR1): 0. Number of mixed cystic and solid nodules of at least 1.5 cm not described (TR 2): 0. IMPRESSION/RECOMMENDATION: 1. Bilateral thyroid nodules measure up to 2.7 cm on the left and 1.9 cm on the right. Comparison with any available prior studies is recommended to assess stability. If none are available, ultrasound-guided fine-needle aspiration of the largest lesion bilaterally is suggested. Electronically signed by: Marli Jose MD (11/01/2019 4:39 PM) [id number]
== END ==
LOC: KCIC US 12:30
PROVIDERS: ATTEND Family Medicine
DX: E04.2 Nontoxic multinodular goiter (principal)
CPT/HCPCS: 76536

== ENCOUNTER → 2019-11-24 | Outpatient (CLI) | payer MEDICARE ==
[2019-05-09 15:00] VITALS: BP 165/73
--- NOTE | 2019-11-24 16:12 | RAD ---
EXAM: ULTRASOUND-GUIDED THYROID FINE-NEEDLE ASPIRATION. HISTORY: Thyroid nodules. Ultrasound-guided biopsy is requested. Right and left thyroid lobes. FINDINGS: The procedure along with its risks and benefits were explained to the patient. They agreed to proceed. A timeout procedure was performed. In separate successive procedures, starting with the right thyroid lobe, and then proceeding to the left thyroid lobe using fresh, sterile equipment, the following was pursued. Sonographic images of the thyroid gland were obtained. The solid target nodule in the right mid thyroid lobe, and subsequently in the mid left thyroid lobe was adequately visualized for biopsy. The overlying skin was sterilely prepped and infiltrated with 1% lidocaine for local anesthesia. Under ultrasound guidance, 5 aspirates of the right thyroid nodule were obtained using 25-gauge needles. 4 aspirates of the left thyroid nodule were obtained using 25-gauge needles. These were hand delivered to pathology who determined them adequate for diagnosis. A sterile dressing was placed. There were no immediate complications. IMPRESSION: 1. Successful ultrasound-guided fine-needle aspiration of the right thyroid nodule. 2. Successful ultrasound-guided fine-needle aspiration of the left thyroid nodule Pathology results on both biopsies are pending. An addendum will be issued once pathology results become available. Electronically signed by: Remington Resendez MD (11/24/2019 4:09 PM) [id number]
--- NOTE | 2019-11-27 12:06 | PATHOLOGY ---
Note [facility] Accession Number: [id number] TESTS RESULT FLAG UNITS REF RANGE LAB Clinician Provided Cytology Information No. of containers..01 Other (Miscellaneous) Source: RIGHT THYROID DIAGNOSIS: RIGHT THYROID NEGATIVE FOR MALIGNANT CELLS. BETHESDA CATEGORY II. SPECIMEN CONSISTS OF ABUNDANT BENIGN FOLLICULAR CELLS, HEMOSIDERIN-LADEN MACROPHAGES, SCANT COLLOID AND BLOOD. THE PATTERN IS CONSISTENT WITH ADENOMATOID NODULE. THIS INTERPRETATION INCLUDES EVALUATION OF A CELL BLOCK. Pathologist ICD10: 02 E04.1 Signed out by: 02 Luis Buck MD, Pathologist NPI- [id number] Performed by: Flakita White, Gang Boss ([facility]) Gross description: 01 30ML, CLEAR RED, 2F 2A 2HE /LCS 11/24/2019 1906 Local FLAG LEGEND: L-Low Normal,H-High Normal,LL-Alert Low,HH-Alert High <-Panic Low,>-Panic High,A-Abnormal,AA-Critical Abnormal Performed at: [facility] [address] [place] [address] David Marr MD, 02 [place] [facility] [id number] [address] Luis Buck MD, Specimen Comment: A courtesy copy of this report has been sent to [phone] Specimen Comment: [id number] Specimen Comment: Report sent to / DR GILES Specimen Comment: A duplicate report has been generated due to demographic updates. Performed at: [address], [place], [place] [id number] MD David Marr MD Phone: [phone]
--- NOTE | 2019-11-27 12:06 | PATHOLOGY ---
Note [facility] Accession Number: [id number] TESTS RESULT FLAG UNITS REF RANGE LAB Clinician Provided Cytology Information No. of containers..01 Other (Miscellaneous) Source: LEFT THYROID DIAGNOSIS: LEFT THYROID INCONCLUSIVE. BETHESDA CATEGORY III. ATYPIA OF UNDETERMINED SIGNIFICANCE. THIS INTERPRETATION INCLUDES EVALUATION OF A CELL BLOCK. Pathologist ICD10: 02 R89.6 Signed out by: Luis Buck MD, Pathologist NPI- [id number] Performed by: Flakita White Clinical Transplant Coordinator ([facility]) Gross description: 01 30ML, PALE PINK, 2FX 2A 2HE /LCS 11/24/2019 1903 Local FLAG LEGEND: L-Low Normal,H-High Normal,LL-Alert Low,HH-Alert High <-Panic Low,>-Panic High,A-Abnormal,AA-Critical Abnormal Performed at: [facility] [address] [place] [address] [address] [place] [address] David Marr MD, 02 [facility] [address] [address] Luis Buck MD, Specimen Comment: A courtesy copy of this report has been sent to [phone] Specimen Comment: [id number] Specimen Comment: Report sent to / DR GILES Specimen Comment: A duplicate report has been generated due to demographic updates. Performed at: 01 [facility] [address], [place], [place] [id number] MD David Marr MD Phone: [phone]
== END | disposition home or self-care (01) ==
LOC: US 10:19
PROVIDERS: ATTEND Family Medicine
DX: E04.2 Nontoxic multinodular goiter (principal); I25.2 Old myocardial infarction; I10 Essential (primary) hypertension; E11.9 Type 2 diabetes mellitus without complications; Z88.0 Allergy status to penicillin; Z79.01 Long term (current) use of anticoagulants
CPT/HCPCS: 10005; 10006; 76942; 88173; 88305

== ENCOUNTER → 2020-06-20 | Outpatient (CLI) | payer MEDICARE ==
[2019-05-09 15:00] VITALS: BP 165/73
[~2020-06-20] MED LIST changes: +AMLO-186 PO; -AMLO5TAB10 PO; -LISI-334 PO; +LISI20TA18 PO
--- NOTE | 2020-06-20 18:45 | KCIC ---
US THYROID History: Reason: Thyroid nodule; Multinodular Goiter / Spl. Instructions: / History: Comparison: November 01, 2019 Technique: Multiple grayscale and color Doppler images of the thyroid gland were obtained. Findings: Right thyroid lobe: 4.2 x 2.0 x 2.2 cm. Heterogeneous echotexture. Left thyroid lobe: 3.5 x 2.8 x 2.6 cm. Heterogeneous echotexture. Isthmus: 0.4 cm. Right mid thyroid solid predominantly isoechoic nodule measures 1.9 x 1.5 x 1.3 cm. TI-RADS 3. Unchan ged compared to prior. Previously biopsied. -Solid and predominantly and/or cortical right inferior thyroid nodule measures 1.2 x 1.5 x 1.1 cm. T I-RADS 3. Unchanged compared to prior. -Left mid thyroid nodule measures 2.5 x 2.4 x 1.2 cm. Unchanged compared to prior. Previously biopsie d. ACR Thyroid Imaging, Reporting And Data System (TI-RADS): White Paper Of The ACR TI-RADS Committee. J ournal of the [employer], volume 14, issue 5, pages 587-595 (August 2016). IMPRESSION: 1. Enlarged heterogeneous multinodular thyroid. 2. Stable TI-RADS 3 bilateral thyroid nodules. Electronically signed by: Miller Covarrubias DO (06/20/2020 6:43 PM) [facility]
== END ==
LOC: KCIC US 13:56
PROVIDERS: ATTEND Family Medicine
DX: E04.2 Nontoxic multinodular goiter (principal)
CPT/HCPCS: 76536

== ENCOUNTER 2021-07-21 06:09 | Observation (INO) | payer MEDICARE ==
[~2021-07-21] VITALS: Ht 165.1 cm; Wt 70.0 kg
[2021-07-21] VITALS (12 sets, daily range): BP systolic 95–136; BP diastolic 46–66
[~2021-07-21 06:09] MED LIST changes: +CYCL10TA19 PO; -CYCL10TA2 PO; +HYDROmorphone 2 MG/ML INJ. IVP PRN; +INSULIN LISPRO 100 UNIT/ML 3ML VIAL for OP,RR ONLY. SQ PRN; +IV RINGERS,LACTATED 1000ML 1,000 ML IV SCH; +LISI1TAB37 PO; +MORPHINE SULFATE 2 MG/ML INJ. IVP PRN; +fentaNYL PF VIAL 100 MCG/2 ML VIAL IVP PRN
[2021-07-21] MEDS ORDERED: SUCCINYLCHOLINE 200 MG/10 ML VIAL. ONE (07:00)
[2021-07-21] MEDS ORDERED: NEOSTIGMINE METHYLSULFATE 5 MG/5 ML SYRINGE. ONE (07:00)
[2021-07-21] MEDS ORDERED: PROPOFOL 10 MG/ML (20ML) VIAL. IV ONE (07:00)
[2021-07-21] MEDS ORDERED: DEXAMETHASONE SOD PHOS 4 MG/ML VIAL ONE (07:00)
[2021-07-21] MEDS ORDERED: ONDANSETRON PF 4 MG/2 ML VIAL. ONE (07:00)
[2021-07-21] MEDS ORDERED: fentaNYL PF VIAL 100 MCG/2 ML VIAL ONE ×2 (07:01→09:17)
[2021-07-21] MEDS ORDERED: MIDAZOLAM HCL/PF 2 MG/2 ML VIAL. ONE (07:01)
[2021-07-21] MEDS ORDERED: ROCURONIUM 50 MG/5 ML VIAL. ONE (07:01)
[2021-07-21] MEDS ORDERED: GLYCOPYRROLATE 1 MG/5 ML VIAL. ONE (07:02)
[2021-07-21] MEDS ORDERED: SEVOFLURANE 31 TO 60 MINUTES. IH ONE (07:02)
[2021-07-21] MEDS ORDERED: SURGICEL HEMOSTAT 4X8 EACH. ONE (07:11)
[2021-07-21] MEDS ORDERED: BUPIVACAINE-EPI 0.5% 30 ML VIAL KIT. ONE (07:11)
[2021-07-21] MEDS ORDERED: IOHEXOL 300 MG/ML 50 ML VIAL. ONE (07:11)
[2021-07-21] MEDS ORDERED: ePHEDrine PF IN SALINE 50 MG/10 ML SYRINGE. IV ONE (07:53)
--- NOTE | 2021-07-21 09:09 | PDOC4 ---
Operative Note Operative Note Operative Note: Preoperative Diagnosis: Symptomatic cholelithiasis Postoperative Diagnosis: Same Procedure: Laparoscopic cholecystectomy with intraoperative cholangiogram Surgeons: Alber Organ Pipe Voicer: Manas Henderson MS 3 Anesthesia: Gen. Estimated Blood Loss: 10 mL Specimen: Gallbladder to pathology Drains: None Complications: None Indications: The patient is a 76-year-old male who is referred due to symptomatic cholelithiasis. Surgical treatment was offered by means of a laparoscopic cholecystectomy. The risks of surgery were discussed which include bleeding, infection, bile duct injury, bile leak, pain, the potential for additional surgeries or procedures. The patient understands and would like to proceed. Description: The patient was taken to the operating room and laid supine on the operating table. General anesthesia was performed. The abdomen was prepped with ChloraPrep and draped in a standard surgical fashion. A small infraumbilical incision was made with a scalpel. The Veress needle was then inserted and a pneumoperitoneum was then created. A 5 mm trocar was then inserted and the laparoscope was introduced. In the upper midabdomen a 5 mm trocar was inserted and in the right upper quadrant two 2.3 mm mini lap graspers were inserted. The gallbladder was retracted cephalad. The cystic duct was dissected free from surrounding tissues. One clip was placed on the duct near the gallbladder junction. An opening was made in the duct and a cholangiocatheter placed within and secured with a clip. Using contrast dye and fluoroscopy an intraoperative cholangiogram was performed that appeared unremarkable. The clip and catheter were then withdrawn. Three clips were placed on the cystic duct and it was divided. The cystic artery was then identified, dissected free, doubly clipped and divided as well. The gallbladder was then mobilized away from the liver with cautery. The umbilical 5 millimeter trocar was exchanged for an 11 millimeter trocar. The gallbladder was then placed in an endoscopic bag and extracted at the umbilical trocar site. The fascia there was closed with an 0 Vicryl suture and infiltrated with 0.5% marcaine. All blood and irrigation fluid was suctioned and hemostasis was good. The remaining ports were removed and the pneumoperitoneum was relieved. The skin incisions were closed using 4-0 Monocryl suture. Steri-Strips and dressings were then applied. The patient tolerated the procedure well and was sent to the recovery room in stable condition. At the end of the case all counts were correct. KATHRYN LOU MD Jul 21, 2021 09:09
[2021-07-21] MEDS: metFORMIN 500 MG TABLET PO SCH ×3 (09:15→17:40)
[2021-07-21] MEDS ORDERED: INSULIN LISPRO 100 UNIT/ML 3ML VIAL for OP,RR ONLY. SQ ONE (09:15)
[2021-07-21] MEDS ORDERED: ONDANSETRON PF 4 MG/2 ML VIAL. IVP PRN (09:15)
[2021-07-21] MEDS ORDERED: HYDROmorphone 2 MG/ML INJ. IV PRN (09:15)
[2021-07-21] MEDS ORDERED: 0.9 % SODIUM CHLORIDE 10 ML DISP.SYRIN. IV PRN (09:15)
[2021-07-21] MEDS ORDERED: NALOXONE 0.4 MG/ML VIAL. IV PRN (09:15)
[2021-07-21] MEDS ORDERED: HYDROcodone/APAP 5/325MG 1 TAB TABLET PO PRN (09:15)
[2021-07-21] MEDS ORDERED: NITROGLYCERIN SUBLINGUAL 0.4 MG BOTTLE OF 25. SL PRN (09:15)
[2021-07-21] MEDS ORDERED: PROCHLORPERAZINE 10 MG/2 ML VIAL. ONE (09:17)
[2021-07-21] MEDS: PROCHLORPERAZINE 10 MG/2 ML VIAL. IVP PRN ×2 (09:20→09:34)
[2021-07-21] MEDS: fentaNYL PF VIAL 100 MCG/2 ML VIAL IVP PRN ×2 (09:20→09:35)
[2021-07-21] MEDS: IV NORMAL SALINE 1000ML BAG 1,000 ML IV SCH ×2 (09:42→11:46)
[2021-07-21] MEDS: EMPAGLIFLOZIN 25 MG TABLET. PO SCH (10:00)
[2021-07-21] MEDS: LISINOPRIL 20 MG TABLET PO SCH (10:00)
[2021-07-21] MEDS: METOPROLOL SUCC 24HR ER 25 MG TAB.ER.24H. PO SCH (10:00)
[2021-07-21] MEDS: hydroCHLOROthiazide 12.5 MG TABLET PO SCH (10:00)
--- NOTE | 2021-07-21 10:30 | NUR ---
Have received patient to room 205. Patient transferred self from cart to bed with standby assist. IVF infusing left hand. Patient alert and oriented. and daughter at bedside. Patient given ice/water, will advance diet as tolerated. Rails up x 2
[2021-07-21] MEDS: IV 1/2 NORMAL SALINE 1,000 ML IV SCH (11:46)
[2021-07-21] MEDS: TAMSULOSIN 0.4 MG CAP.ER.24H. PO SCH ×2 (11:57→20:47)
[2021-07-21] MEDS: HYDROcodone/APAP 5/325MG 1 TAB TABLET PO PRN (16:28)
[2021-07-21] MEDS ORDERED: ATORVASTATIN CALCIUM 40 MG TABLET. PO SCH (21:00)
[2021-07-22] MEDS: IV 1/2 NORMAL SALINE 1,000 ML IV SCH (01:49)
[2021-07-22 03:00] VITALS: BP 121/51
[2021-07-22] MEDS: HYDROcodone/APAP 5/325MG 1 TAB TABLET PO PRN ×3 (04:00→13:04)
[2021-07-22 07:00] VITALS: BP 128/60
[2021-07-22] MEDS: EMPAGLIFLOZIN 25 MG TABLET. PO SCH (08:32)
[2021-07-22] MEDS: METOPROLOL SUCC 24HR ER 25 MG TAB.ER.24H. PO SCH (08:33)
[2021-07-22] MEDS: hydroCHLOROthiazide 12.5 MG TABLET PO SCH (08:34)
[2021-07-22] MEDS: LISINOPRIL 20 MG TABLET PO SCH (08:35)
[2021-07-22] MEDS: TAMSULOSIN 0.4 MG CAP.ER.24H. PO SCH (08:35)
[2021-07-22] MEDS ORDERED: ASPIRIN ENTERIC COATED 81 MG TABLET.DR. PO SCH (09:00)
[2021-07-22 11:00] VITALS: BP 107/58
[2021-07-22] MEDS ORDERED: HYDR-2761 PO (11:14)
--- NOTE | 2021-07-22 11:16 | DISCH ---
DISCHARGE INSTRUCTIONS Condition on Discharge Condition on Discharge: Stable Activity After Discharge Activity Instructions for Disc: Activity as tolerated Lifting Instructions after Dis: No heavy lifting, No pulling or pushing Driving Instructions after Dis: Do not drive today Diet after Discharge Diet after Discharge: Low Fat Diet Texture: Regular Liquid Texture: Thin Liquid Wound Incision Care Wound/Incision Care: May get incision wet, No wound care needed Checks after Discharge Checks after discharge: Check blood press - daily, Weigh Yourself Daily Contacting the DRDaniel after DC Call your doctor for: Concerns you may have Follow-Up Follow up with: Dr Campo 2 weeks, call to schedule [phone] Treatment/Equipment after DC Adaptive Equipment Issued: None ALEXANDRU MOHAMUD INTERFACE DEVELOPER Jul 22, 2021 11:16
--- NOTE | 2021-07-22 11:22 | PDOC3 ---
Discharge Summary Date of Admission: Jul 21, 2021 Date of Discharge: Jul 22, 2021 Follow-Up: Other (2 weeks) Admitting Diagnosis comment: Symptomatic cholelithiasis FINAL DIAGNOSIS Symptomatic cholelithiasis Brief Hospital Course Mr. Lawler is a 76 old male who underwent Laparoscopic cholecystectomy with intraoperative cholangiogram. postoperatively tolerating diet, ambulating, and pain controlled. Ready for discharge home exam: a/o abdomen soft, ND, lap sites intact Assessment symptomatic cholelithiasis plan home today CONDITION AT DISCHARGE: Stable Discharge Medications Current Medications Fentanyl Citrate (Fentanyl 2ml Vial) 25 mcg PRN Q5MIN PRN IVP MILD PAIN 1-3; Start 07/21/21 at 06:00; Stop 07/22/21 at 05:59; Status DC Fentanyl Citrate (Fentanyl 2ml Vial) 50 mcg PRN Q5MIN PRN IVP MODERATE PAIN 4-6 Last administered on 07/21/21at 09:35; Start 07/21/21 at 06:00; Stop 07/22/21 at 05:59; Status DC Morphine Sulfate (Morphine Sulfate) 1 mg PRN Q10MIN PRN IVP SEVERE PAIN 7-10; Start 07/21/21 at 06:00; Stop 07/22/21 at 05:59; Status DC Ringer's Solution 1,000 ml @ 30 mls/hr Q24H IV Last administered on 07/21/21at 06:48; Start 07/21/21 at 06:00; Stop 07/21/21 at 17:59; Status DC Hydromorphone HCl (Dilaudid) 0.5 mg PRN Q10MIN PRN IVP SEVERE PAIN 7-10, 2nd CHOICE; Start 07/21/21 at 06:00; Stop 07/22/21 at 05:59; Status DC Prochlorperazine Edisylate (Compazine) 5 mg PACU PRN PRN IVP NAUSEA, MRX1 Last administered on 07/21/21at 09:34; Start 07/21/21 at 06:00; Stop 07/22/21 at 05:59; Status DC Levofloxacin/ Dextrose 100 ml @ 100 mls/hr 1X PREOP PRN IV PRIOR TO PROCEDURE Last administered on 07/21/21at 07:50; Start 07/21/21 at 06:00; Stop 07/21/21 at 18:00; Status DC Insulin Human Lispro (HumaLOG VIAL for OP,RR ONLY) 0-10 units PRN Q1HR PRN SQ PER PROTOCOL Last administered on 07/21/21at 09:11; Start 07/21/21 at 06:00; Stop 07/22/21 at 05:59; Status DC Propofol (Diprivan) 200 mg STK-MED ONCE IV ; Start 07/21/21 at 07:00; Stop 07/21/21 at 07:00; Status DC Ondansetron HCl (Zofran) 4 mg STK-MED ONCE .ROUTE ; Start 07/21/21 at 07:00; Stop 07/21/21 at 07:00; Status DC Dexamethasone Sodium Phosphate (Decadron) 4 mg STK-MED ONCE .ROUTE ; Start 07/21/21 at 07:00; Stop 07/21/21 at 07:00; Status DC Succinylcholine Chloride (Anectine) 200 mg STK-MED ONCE .ROUTE ; Start 07/21/21 at 07:00; Stop 07/21/21 at 07:00; Status DC Neostigmine [place] (Neostigmine Methylsulfate) 5 mg STK-MED ONCE .ROUTE ; Start 07/21/21 at 07:00; Stop 07/21/21 at 07:01; Status DC Rocuronium [place] (Zemuron) 50 mg STK-MED ONCE .ROUTE ; Start 07/21/21 at 07:01; Stop 07/21/21 at 07:01; Status DC Fentanyl Citrate (Fentanyl 2ml Vial) 100 mcg STK-MED ONCE .ROUTE ; Start 07/21/21 at 07:01; Stop 07/21/21 at 07:01; Status DC Midazolam HCl (Versed) 2 mg STK-MED ONCE .ROUTE ; Start 07/21/21 at 07:01; Stop 07/21/21 at 07:02; Status DC Glycopyrrolate (Robinul) 1 mg STK-MED ONCE .ROUTE ; Start 07/21/21 at 07:02; Stop 07/21/21 at 07:02; Status DC Sevoflurane (Ultane) 30 ml STK-MED ONCE IH ; Start 07/21/21 at 07:02; Stop 07/21/21 at 07:02; Status DC Bupivacaine HCl/ Epinephrine Bitart (Sensorcain-Epi 0.5% Kit) 30 ml STK-MED ONCE .ROUTE Last administered on 07/21/21at 08:03; Start 07/21/21 at 07:11; Stop 07/21/21 at 07:11; Status DC Iohexol (Omnipaque 300 Mg/ml) 50 ml STK-MED ONCE .ROUTE Last administered on 07/21/21at 08:03; Start 07/21/21 at 07:11; Stop 07/21/21 at 07:11; Status DC Cellulose (Surgicel Hemostat 4x8) 1 each STK-MED ONCE .ROUTE Last administered on 07/21/21at 08:39; Start 07/21/21 at 07:11; Stop 07/21/21 at 07:11; Status DC Ephedrine Sulfate (ePHEDrine PF IN SALINE SYRINGE) 50 mg STK-MED ONCE IV ; Start 07/21/21 at 07:53; Stop 07/21/21 at 07:53; Status DC Sodium Chloride (Normal Saline Flush) 3 ml QSHIFT PRN IV AFTER MEDS AND BLOOD DRAWS; Start 07/21/21 at 09:15 Sodium Chloride 1,000 ml @ 70 mls/hr [id number] IV Last administered on 07/22/21at 01:49; Start 07/21/21 at 09:15 Acetaminophen/ Hydrocodone Bitart (Lortab 5/325) 1 tab PRN Q4HRS PRN PO MILD PAIN 1-3 Last administered on 07/21/21at 12:02; Start 07/21/21 at 09:15 Acetaminophen/ Hydrocodone Bitart (Lortab 5/325) 2 tab PRN Q4HRS PRN PO MODERATE PAIN, SEVERE PAIN Last administered on 07/22/21at 08:37; Start 07/21/21 at 09:15 Naloxone HCl (Narcan) 0.4 mg PRN Q2MIN PRN IV SEE INSTRUCTIONS; Start 07/21/21 at 09:15 Sodium Chloride 1,000 ml @ 25 mls/hr Q24H IV Last administered on 07/21/21at 09:42; Start 07/21/21 at 09:15 Hydromorphone HCl (Dilaudid) 0.2 mg PRN Q1HR PRN IV PAIN-SEE COMMENTS; Start 07/21/21 at 09:15 Ondansetron HCl (Zofran) 4 mg PRN Q6HRS PRN IVP NAUESA, 1ST CHOICE; Start 07/21/21 at 09:15 Aspirin (Ecotrin) 81 mg DAILY PO Last administered on 07/22/21at 08:36; Start 07/22/21 at 09:00 Atorvastatin Calcium (Lipitor) 40 mg QHS PO Last administered on 07/21/21at 20:47; Start 07/21/21 at 21:00 Metformin HCl (Glucophage) 500 mg BIDWMEALS PO ; Start 07/21/21 at 09:15 Metoprolol Succinate (Toprol Xl) 12.5 mg DAILY PO Last administered on 07/22/21at 08:33; Start 07/21/21 at 10:00 Nitroglycerin (Nitrostat) 0.4 mg PRN Q5MIN PRN SL CHEST PAIN; Start 07/21/21 at 09:15 Tamsulosin HCl (Flomax) 0.4 mg BID PO Last administered on 07/22/21at 08:35; Start 07/21/21 at 10:00 Empaglifozin (Jardiance) 25 mg DAILY PO Last administered on 07/22/21at 08:32; Start 07/21/21 at 10:00 Lisinopril (Prinivil) 20 mg DAILY PO Last administered on 07/22/21at 08:35; Start 07/21/21 at 10:00 Fentanyl Citrate (Fentanyl 2ml Vial) 100 mcg STK-MED ONCE .ROUTE ; Start 07/11 05/03 at 09:17; Stop 07/21/21 at 09:17; Status DC Prochlorperazine Edisylate (Compazine) 10 mg STK-MED ONCE .ROUTE ; Start 07/21 at 09:17; Stop 07/21/21 at 09:17; Status DC Hydrochlorothiazide (Microzide) 12.5 mg DAILY PO Last administered on 07/22/21at 08:34; Start 07/21/21 at 10:00 Active Scripts Active Hydrocodone-Apap 5-325 (Hydrocodone Bit/Acetaminophen) 1 Tab Tablet 1 Tab PO PRN Q4HRS PRN Reported Lisinopril-Hctz 20-12.5 Mg Tab (Lisinopril/Hydrochlorothiazide) 1 Each Tablet 1 Tab PO DAILY Metformin Hcl 500 Mg Tablet 500 Mg PO BIDWMEALS Farxiga (Dapagliflozin Propanediol) 10 Mg Tablet 10 Mg PO DAILY Lipitor (Atorvastatin Calcium) 40 Mg Tablet 1 Tab PO QHS Aspir-Low (Aspirin) 81 Mg Tablet.dr 1 Tab PO DAILY NITROGLYCERIN SubLingual (Nitroglycerin) 0.4 Mg Tab.subl 0.4 Mg SL PRN Q5MIN PRN Metoprolol Succinate ( Xl ) (Metoprolol Succinate) 25 Mg Tab.er.24h 12.5 Mg PO DAILY Flomax (Tamsulosin Hcl) 0.4 Mg Cap.er.24h 1 Cap PO BID Vital Signs Vital Signs Date Time Temp Pulse Resp B/P (MAP) Pulse Ox O2 Delivery O2 Flow Rate FiO2 07/22/21 08:37 20 94 Room Air 07/22/21 08:35 62 128/60 07/22/21 07:00 98.0 98.0 07/21/21 12:02 2.0 Labs Laboratory Tests Test 07/21/21 06:30 07/21/21 06:45 07/21/21 09:08 07/21/21 11:48 POC SARS CoV-2 Antigen Negative (NEGATIVE) Glucose (Fingerstick) 140 mg/dL (70-99) 162 mg/dL (70-99) 133 mg/dL (70-99) Test 07/21/21 17:00 07/21/21 22:52 Glucose (Fingerstick) 191 mg/dL (70-99) 108 mg/dL (70-99) Laboratory Tests Test 07/21/21 11:48 07/21/21 17:00 07/21/21 22:52 Glucose (Fingerstick) 133 mg/dL (70-99) 191 mg/dL (70-99) 108 mg/dL (70-99) Allergies Allergies Coded Allergies Type Severity Reaction Last Updated Verified Penicillins Allergy Intermediate Rash 07/21/21 Yes Disposition/Orders: D/C to Home Justicifation of Admission Dx: Justifications for Admission: Justification of Admission Dx: Yes Comments: cholelithiasis ALEXANDRU MOHAMUD APRN Jul 22, 2021 11:22
--- NOTE | 2021-07-22 13:33 | NUR ---
SW following. Discussed with RN, pt from home, room air, GI soft, COVID-19 negative. Discharge order for home with self care. RN advised no SW needs.
--- NOTE | 2021-07-22 18:06 | PATHOLOGY ---
[facility] Accession Number: [id number] . 01 Material submitted: . gallbladder - GALLBLADDER . 01 Clinical history: . SYMPTOMATIC CHOLELITHIASIS . 02 Diagnosis: Gallbladder, excision: - Mild chronic cholecystitis with Rokitansky-Aschoff sinus formation. - Lithiasis. - Negative for malignancy. (MLK:lorin; 07/22/2021) MBR 07/22/2021 1351 Local . 02 Electronically signed: . David Araujo MD, Pathologist NPI- [id number] . 01 Gross description: . Fixative: Formalin Labeled: Gallbladder Specimen received: An intact gallbladder Dimensions: 7.2 x 2.6 x 2.6 cm Lymph node: Not identified Serosa: [place], smooth and dusky Calculi: A brown-black roughened cholelith (1.9 x 1.8 x 1.6 cm) Mucosa: Green and velvety with minimal gore stippling Average wall thickness: 0.2 cm Abnormalities: None A1: Gallbladder, represented ([facility]; 07/21/2021) DKA/DKA 07/21/2021 1547 Local . 02 Pathologist provided ICD-10: K80.10 . 02 CPT . 593078 Specimen Comment: A courtesy copy of this report has been sent to [phone] Specimen Comment: Report sent to Specimen Comment: A duplicate report has been generated due to demographic updates. Performed at: 01 [facility] [address] [place], [place] [id number] MD Kyler Thomas MD Phone: [phone] Performed at: 02 [facility] [address] [place], [place] [id number] MD Brice Desouza MD Phone: [phone]
== END 2021-07-22 13:00 | disposition home or self-care (01) ==
LOC: SURG 06:09 → 2 NORTH 09:09
PROVIDERS: ADMIT Surgery; ATTEND Surgery
DX: K80.20 Calculus of gallbladder without cholecystitis without obstruction (principal); Z20.822 Contact with and (suspected) exposure to COVID-19; Z79.899 Other long term (current) drug therapy; Z98.890 Other specified postprocedural states
CPT/HCPCS: 47563; 74300; 82962; 88304; A4213; A4364; A4930; A6219; C1887; G0378; G0379; J0330; J0780; J1100; J1815; J1956; J2250; J2405; J2704; J2710; J3010; J3490; Q9967; A4452; A4657